=== PATIENT | male | born 1960 | race Caucasian/White ===

== ENCOUNTER 2019-04-15 14:40 | Emergency (ER) | payer OTHER ==
[~2019-04-15] VITALS: Ht 188 cm; Wt 87.1 kg
[~2019-04-15 14:40] MED LIST: AMOXICILLIN875 MG PO; ATIVAN1 MG PO; NOHOMEMEDICATIONS; VICODIN 5-5001 EACH PO
[2019-04-15 15:46] LABS: ABSOLUTE EOSINOPHILS 0.1 thou/uL (0.0-0.7); ABSOLUTE LYMPHOCYTES 1.5 thou/uL (0.8-5.3); ABSOLUTE MONOCYTES 0.6 thou/uL (0.0-1.2); ABSOLUTE NEUTROPHILS 4.9 thou/uL (1.6-8.1); BASOPHILS 0.2 %; HEMATOCRIT 46.6 % (42.0-52.0); HEMOGLOBIN 15.7 gm/dL (14.0-18.0); LYMPHOCYTES 21.4 %; MCHC 33.7 g/dL (28.0-37.0); MCV 86.2 fL (80.0-100.0); MONOCYTES 8.7 %; NUCLEATED RBCS 0 /100WBC; PLATELET COUNT* 297 thou/uL (150-400); POLYS 68.7 %; RDW-CV 16.3 % (10.5-14.5); WBC 7.1 thou/uL (4.0-11.0)
[2019-04-15 15:51] LABS: CALCIUM 7.8 mg/dL (8.5-10.1); CREATININE 0.9 mg/dL (0.6-1.3); POTASSIUM 3.2 mmol/L (3.5-5.1)
[2019-04-15 15:55] LABS: ALBUMIN 3.4 g/dL (3.4-5.0); MAGNESIUM 1.1 mg/dL (1.8-2.4); TOTAL BILIRUBIN 0.4 mg/dL (<0.1-1.0); TOTAL PROTEIN 6.8 g/dL (6.4-8.2)
[2019-04-15 15:59] LABS: ALCOHOL 23 mg/dL (<10); SALICYLATE < 2.8 mg/dL (2.8-20.0)
[2019-04-15 16:00] LABS: ACETAMINOPHEN < 2 ug/mL (10-30)
[2019-04-15] MEDS ORDERED: ZOFRAN ODT4 MG PO (18:26)
[2019-04-15] MEDS ORDERED: CHLORDIAZEPOXID25 M1 PO (18:26)
[2019-04-15 18:30] LABS: MAGNESIUM 1.1 mg/dL (1.8-2.4)
[2019-04-15] MEDS ORDERED: MAGNESIUM400 M1 PO (18:30)
[2019-04-15 18:40] LABS: URINE BILIRUBIN NEGATIVE (Negative); URINE BLOOD NEGATIVE (Negative); URINE CLARITY CLEAR; URINE COLOR YELLOW; URINE GLUCOSE-RANDOM NEGATIVE (Negative); URINE KETONES NEGATIVE (Negative); URINE LEUKOCYTES-REFLEX NEGATIVE (Negative); URINE NITRITE-REFLEX NEGATIVE (Negative); URINE PROTEIN NEGATIVE (Negative); URINE UROBILINOGEN 0.2 E.U./dl (0.2-1.0)
[2019-04-15 18:48] LABS: AMP/METHAMP Negative (Negative); BARBITURATES Negative (Negative); BENZODIAZEPINES POSITIVE (Negative); COCAINE Negative (Negative); METHADONE Negative (Negative); OPIATES Negative (Negative); PCP Negative (Negative); THC Negative (Negative)
[2019-04-15 19:21] LABS: CALCIUM 8.4 mg/dL (8.5-10.1); MAGNESIUM 1.5 mg/dL (1.8-2.4)
[2019-04-15 22:52] VITALS: BP 135/84
--- NOTE | 2019-04-17 12:42 | EKG ---
[place] [address] ELECTROCARDIOGRAM REPORT Name: BARNEY CRANE [facility] [id number] Admission: 04/15/19 Attend Phys: Discharge: 04/15/19 Date of : 64 Report #: [id number] THIS REPORT FOR: //name// [facility] ED Test Date: 2019-04-15 Test Time: 14:59:55 Pat Name: BARNEY CRANE Department: Room: Gender: M [employer]: : 1960 Requested By: Ryanne Hauser Order Number: [id number] Samira MD: Dionisio Albright Measurements Intervals [place] Rate: 96 P: 74 SD: 156 QRS: 57 QRSD: 93 T: 45 QT: 363 QTc: 459 Interpretive Statements Sinus rhythm Low voltage, extremity leads Baseline wander in lead(s) I,II,III,aVR,aVL,V1,V2,V3,V5,V6 No previous ECG available for comparison Electronically Signed On 04-17-2019 12:41:56 DEBONER by Dionisio Albright [email or web address] <ELECTRONICALLY SIGNED> By: Dionisio Albright MD, [facility] 04/17/19 1241 1459 1459 Dionisio Albright MD, FAC /EPI
== END 2019-04-15 22:52 ==
LOC: M.ERS 14:40
PROVIDERS: Personal Emergency Response Attendant
DX: F10.10 Alcohol abuse, uncomplicated (principal); Y90.1 Blood alcohol level of 20-39 mg/100 ml; E83.42 Hypomagnesemia; E83.51 Hypocalcemia; R11.2 Nausea with vomiting, unspecified; Z88.5 Allergy status to narcotic agent; Z79.899 Other long term (current) drug therapy